=== PATIENT | female | born 1970 | race African-American/Black ===

== ENCOUNTER 2016-11-10 21:27 | Emergency (ER) | payer SELFPAY ==
[~2016-11-10] VITALS: Ht 157.5 cm; Wt 101.1 kg
[~2016-11-10 21:27] MED LIST: METH750T2 PO; NAPR40TA PO; ZOFR4TAB3 SL
[2016-11-10 21:37] VITALS: BP 170/89; PULSE 97; RESP 18; TEMP 98.2; O2SAT 99
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
[2016-11-11 00:01] LABS: AUTOMATED NEUTROPHIL # 4.4 TH/MM3 (1.8-7.7); BASOPHIL # 0.3 TH/MM3 (0-0.2); BASOPHIL % 3.5 % (0.0-2.0); EOSINOPHIL # 0.1 TH/MM3 (0-0.4); GLUCOSE,URINE NEG (NEG); HEMATOCRIT 39.3 % (35.0-46.0); KETONE, URINE NEG (NEG); LYMPH % 35.6 % (9.0-44.0); MEAN CELL VOLUME 88.2 FL (80.0-100.0); MEAN CORPUSCULAR HEMOGLOBIN 29.9 PG (27.0-34.0); MEAN CORPUSCULAR HGB CONC 33.9 % (32.0-36.0); MONO % 6.4 % (0.0-8.0); NEUT % 53.5 % (16.0-70.0); NITRITE,URINE NEG (NEG); PLATELET COUNT 191 TH/MM3 (150-450); RED BLOOD COUNT 4.46 MIL/MM3 (4.00-5.30); RED CELL DISTRIBUTION WIDTH 13.8 % (11.6-17.2); WHITE BLOOD COUNT 8.3 TH/MM3 (4.0-11.0)
[2016-11-11 00:03] LABS: BLOOD, URINE TRACE (NEG); URINE COLOR YELLOW (YELLW/STRAW)
[2016-11-11 00:04] LABS: HEMO FLAGS DIFF FINAL
[2016-11-11 00:12] LABS: BACTERIA, URINE FEW /hpf; CALCIUM OXALATE CRYSTALS,URINE MANY /hpf; COMMENT (UR) CULTURE INDICATED; CULTURE IF INDICATED CULTURE INDICATED; SQUAMOUS EPITHELIAL CELL URINE > 8 /hpf (0-5)
[2016-11-11 00:13] LABS: POTASSIUM 3.4 MEQ/L (3.5-5.1)
[2016-11-11 00:15] LABS: BICARBONATE 28.2 MEQ/L (21.0-32.0)
[2016-11-11] MEDS ORDERED: MACR100C2 PO (00:34)
[2016-11-11] MEDS ORDERED: NITROFURANTOIN MONOHYD MACROCR 100 MG CAP PO ONE (00:45)
[2016-11-11 00:50] VITALS: BP 169/84; PULSE 91; RESP 15; TEMP 98.4; O2SAT 99
== END 2016-11-11 00:54 | disposition home or self-care (01) ==
LOC: PHED 21:27
DX: N30.90 Cystitis, unspecified without hematuria (principal); N12 Tubulo-interstitial nephritis, not specified as acute or chronic
CPT/HCPCS: 80048; 81001; 85025; 87086; 99283